=== PATIENT | male | born 1935 | race Caucasian/White ===

== ENCOUNTER → 2019-07-23 | Outpatient (CLI) | payer MEDICARE | END | disposition home or self-care (01) | LOC: RAH 09:19 | PROVIDERS: ATTEND Neurological Surgery | DX: I35.8 Other nonrheumatic aortic valve disorders (principal) | CPT/HCPCS: 93306; 93356 ==

== ENCOUNTER 2021-09-07 17:19 | Inpatient (IN) | payer MEDICARE ==
[~2021-09-07] VITALS: Ht 180.3 cm; Wt 68.9 kg
[2021-09-07 18:02] LABS: HEMATOCRIT 44.3 % (42-54); MEAN CORPUSCULAR HEMOGLOBIN 31.4 pg (27.0-33.0); MEAN CORPUSCULAR HGB CONC 33.4 g/dL (32.0-36.0); MEAN CORPUSCULAR VOLUME 93.9 fL (79-99); RED BLOOD CELL COUNT(AUTO) 4.72 MIL/uL (4.50-6.20); RED CELL DISTRIBUTION WIDTH 13.2 % (11.0-15.5); WHITE BLOOD COUNT (AUTO) 14.5 K/uL (4.8-10.8)
[2021-09-07 18:15] LABS: CREATININE 0.8 mg/dL (0.5-1.5); POTASSIUM 3.9 mmol/L (3.5-5.1)
[2021-09-07 18:19] LABS: ALBUMIN 3.3 g/dL (3.5-5.0); MAGNESIUM 2.3 mg/dL (1.80-2.40); TOTAL PROTEIN, SERUM 7.4 g/dL (6.0-8.3)
[2021-09-07 18:21] LABS: BILIRUBIN,URINE Negative (NEGATIVE); COLOR,URINE Dark Yellow (YELLOW); GLUCOSE, URINE (UA) Negative (NEGATIVE); KETONES,URINE Negative (NEGATIVE); LEUKOCYTE ESTERASE ,URINE Large (NEGATIVE); NITRATE,URINE Positive (NEGATIVE); OCCULT BLOOD,URINE Small (NEGATIVE); PROTEIN,URINE POS 1+ mg/dL (NEGATIVE)
[2021-09-07 18:22] LABS: APPEARANCE,URINE CLOUDY (CLEAR)
[2021-09-07 18:37] LABS: BACTERIA,URINE Moderate /HPF (None Seen); SQUAMOUS EPITHELIAL CELL,UR Rare /HPF (0-2); WBC,URINE 51-100 /HPF (0-1)
[2021-09-07] MEDS ORDERED: CEFTRIAXONE 1G VIAL IVP ONE (19:00)
[2021-09-07] MEDS ORDERED: 0.9% NACL 500ML IV.SOLN 500 ML IV ONE (19:00)
[2021-09-07] MEDS ORDERED: IPRATROPIUM/ALBUTEROL SULFATE 3 ML SOLUTION IH ONE (19:00)
[2021-09-07 19:25] LABS: ABG BASE EXCESS 1.3 mmol/L (-2.0-3.0); ABG HCO3 24.4 mmol/L (21.0-28.0); ABG OXYGEN SATURATION 98.4 % (95.0-99.0); ABG PCO2 34 mmHg (35-48)
[2021-09-07] MEDS ORDERED: GUAIFENESIN-DM 200/20 MG 10 ML PO PRN (20:00)
[2021-09-07] MEDS ORDERED: ONDANSETRON 4MG INJ IV PRN (20:00)
[2021-09-07] MEDS ORDERED: ACETAMINOPHEN 325 MG TAB PO PRN ×2 (20:00)
[2021-09-07] MEDS ORDERED: 0.9%NACL 100ML 100 ML ONE (20:40)
[2021-09-07] MEDS: CEFEPIME HCL 2 GM VIAL IVP SCH (20:43)
[2021-09-07] MEDS: SOLU-MEDROL 125MG VIAL IV SCH (20:43)
[2021-09-07] MEDS ORDERED: 0.9%NACL 1000ML 2,259 ML IV ONE (21:00)
[2021-09-07] MEDS ORDERED: IOHEXOL 350 MG/ML 100ML INFUS..BTL IV ONE (21:14)
[2021-09-07] MEDS: DOXYCYCLINE 100MG+NS 250ML 250 ML IV SCH (21:59)
[2021-09-07] MEDS: IPRATROPIUM/ALBUTEROL SULFATE 3 ML SOLUTION IH SCH (23:12)
[2021-09-08 06:41] LABS: BASOPHILS % (AUTO) 0.1 % (0.0-5.0); HEMATOCRIT 40.7 % (42-54); LYMPHOCYTES % (AUTO) 3.7 % (21.0-51.0); MEAN CORPUSCULAR HEMOGLOBIN 29.7 pg (27.0-33.0); MEAN CORPUSCULAR HGB CONC 32.2 g/dL (32.0-36.0); MEAN CORPUSCULAR VOLUME 92.3 fL (79-99); MONOCYTES % (AUTO) 8.4 % (3.0-13.0); NEUTROPHILS % (AUTO) 87.4 % (40.0-77.0); PLATELET COUNT (AUTO) 155 K/uL (130-400); RED BLOOD CELL COUNT(AUTO) 4.41 MIL/uL (4.50-6.20); RED CELL DISTRIBUTION WIDTH 13.2 % (11.0-15.5); WHITE BLOOD COUNT (AUTO) 10.9 K/uL (4.8-10.8)
[2021-09-08] MEDS: IPRATROPIUM/ALBUTEROL SULFATE 3 ML SOLUTION IH SCH ×4 (06:45→23:47)
[2021-09-08] MEDS ORDERED: SODIUM CHLORIDE 3% FOR INHALATION 4 ML/AMP VIAL.NEB IH ONE (06:50)
[2021-09-08 06:54] LABS: CREATININE 0.7 mg/dL (0.5-1.5); MAGNESIUM 2.1 mg/dL (1.80-2.40); PHOSPHORUS 2.9 mg/dL (2.5-4.9); POTASSIUM 4.2 mmol/L (3.5-5.1)
[2021-09-08] MEDS: SOLU-MEDROL 125MG VIAL IV SCH ×2 (08:00→20:05)
[2021-09-08] MEDS: CEFEPIME HCL 2 GM VIAL IVP SCH ×2 (08:00→20:05)
[2021-09-08] MEDS: DOXYCYCLINE 100MG+NS 250ML 250 ML IV SCH ×2 (08:03→20:05)
[2021-09-08] MEDS ORDERED: FAMOTIDINE 20MG TAB PO SCH (09:00)
[2021-09-08] MEDS ORDERED: ENOXAPARIN SODIUM 40 MG/0.4 ML SYRINGE SQ SCH (09:00)
[2021-09-08] MEDS ORDERED: BUDESONIDE 0.5 MG/2 ML INH IH SCH (10:30)
[2021-09-08 12:00] VITALS: BP 131/84
[2021-09-08 16:00] VITALS: BP 142/82
[2021-09-08] MEDS: BUDESONIDE 0.5 MG/2 ML INH IH SCH (17:16)
[2021-09-08 19:50] VITALS: BP 138/78
[2021-09-08 23:35] VITALS: BP 126/69
[2021-09-09 03:27] VITALS: BP_SYST 109; BP_DIAS 27; BP_DIAS 67
[2021-09-09 06:26] LABS: BASOPHILS % (AUTO) 0.5 % (0.0-5.0); EOSINOPHILS % (AUTO) 2.5 % (0.0-8.0); HEMATOCRIT 38.5 % (42-54); MEAN CORPUSCULAR HEMOGLOBIN 30.6 pg (27.0-33.0); MEAN CORPUSCULAR HGB CONC 32.5 g/dL (32.0-36.0); MEAN CORPUSCULAR VOLUME 94.1 fL (79-99); MONOCYTES % (AUTO) 16.4 % (3.0-13.0); NEUTROPHILS % (AUTO) 70.1 % (40.0-77.0); PLATELET COUNT (AUTO) 149 K/uL (130-400); RED BLOOD CELL COUNT(AUTO) 4.09 MIL/uL (4.50-6.20); RED CELL DISTRIBUTION WIDTH 13.4 % (11.0-15.5); WHITE BLOOD COUNT (AUTO) 7.5 K/uL (4.8-10.8)
[2021-09-09] MEDS: IPRATROPIUM/ALBUTEROL SULFATE 3 ML SOLUTION IH SCH ×3 (06:39→17:30)
[2021-09-09] MEDS: BUDESONIDE 0.5 MG/2 ML INH IH SCH ×2 (06:39→17:31)
[2021-09-09 06:40] LABS: ALBUMIN 2.7 g/dL (3.5-5.0); BILIRUBIN,TOTAL 0.3 mg/dL (0.2-1.0); CREATININE 0.6 mg/dL (0.5-1.5); POTASSIUM 3.5 mmol/L (3.5-5.1); TOTAL PROTEIN, SERUM 6.6 g/dL (6.0-8.3)
[2021-09-09 08:00] VITALS: BP 129/83
[2021-09-09] MEDS: CEFEPIME HCL 2 GM VIAL IVP SCH ×2 (08:10→20:24)
[2021-09-09] MEDS: DOXYCYCLINE 100MG+NS 250ML 250 ML IV SCH ×2 (08:10→20:24)
[2021-09-09] MEDS: SOLU-MEDROL 125MG VIAL IV SCH (08:13)
[2021-09-09 12:00] VITALS: BP 150/78
[2021-09-09 16:00] VITALS: BP 143/76
[2021-09-09 19:50] VITALS: BP 135/60
[2021-09-09] MEDS ORDERED: METOPROLOL TARTRATE 25 MG TAB PO SCH (21:00)
[2021-09-09 23:36] VITALS: BP 131/69
[2021-09-10] MEDS: IPRATROPIUM/ALBUTEROL SULFATE 3 ML SOLUTION IH SCH ×3 (00:20→11:05)
[2021-09-10 03:46] LABS: BASOPHILS % (AUTO) 0.6 % (0.0-5.0); EOSINOPHILS % (AUTO) 2.6 % (0.0-8.0); HEMATOCRIT 37.2 % (42-54); LYMPHOCYTES % (AUTO) 11.9 % (21.0-51.0); MEAN CORPUSCULAR HEMOGLOBIN 29.8 pg (27.0-33.0); MEAN CORPUSCULAR HGB CONC 32.3 g/dL (32.0-36.0); MEAN CORPUSCULAR VOLUME 92.3 fL (79-99); MONOCYTES % (AUTO) 16.4 % (3.0-13.0); NEUTROPHILS % (AUTO) 67.3 % (40.0-77.0); PLATELET COUNT (AUTO) 172 K/uL (130-400); RED BLOOD CELL COUNT(AUTO) 4.03 MIL/uL (4.50-6.20); RED CELL DISTRIBUTION WIDTH 13.2 % (11.0-15.5); WHITE BLOOD COUNT (AUTO) 6.5 K/uL (4.8-10.8)
[2021-09-10 03:49] VITALS: BP 109/63
[2021-09-10 04:14] LABS: CREATININE 0.6 mg/dL (0.5-1.5); POTASSIUM 3.5 mmol/L (3.5-5.1)
[2021-09-10] MEDS: BUDESONIDE 0.5 MG/2 ML INH IH SCH (06:42)
[2021-09-10 07:30] VITALS: BP 130/81
[2021-09-10] MEDS ORDERED: ENOXAPARIN SODIUM 30 MG/0.3 ML SQ SCH (09:00)
[2021-09-10] MEDS ORDERED: PANTOPRAZOLE 40 MG/VIAL IVP SCH (09:00)
[2021-09-10 11:00] VITALS: BP 142/77
[2021-09-10] MEDS ORDERED: METOPROLOL TARTRATE 25 MG TAB PO SCH (11:00)
[2021-09-10] MEDS: CEFEPIME HCL 2 GM VIAL IVP SCH (11:19)
[2021-09-10] MEDS: DOXYCYCLINE 100MG+NS 250ML 250 ML IV SCH (11:20)
== END 2021-09-10 18:00 | disposition home or self-care (01) | DRG 871 ==
LOC: EDH 17:19 → EDHIP 20:00 → 4CH 09-08 08:40
PROVIDERS: ADMIT Internal Medicine; ATTEND Internal Medicine
DX: A41.9 Sepsis, unspecified organism (principal); J18.9 Pneumonia, unspecified organism; J96.01 Acute respiratory failure with hypoxia; N39.0 Urinary tract infection, site not specified; D68.59 Other primary thrombophilia; R65.20 Severe sepsis without septic shock; N40.0 Benign prostatic hyperplasia without lower urinary tract symptoms; Z20.822 Contact with and (suspected) exposure to COVID-19; G51.0 Bell's palsy; Z96.642 Presence of left artificial hip joint; Z82.49 Family history of ischemic heart disease and other diseases of the circulatory system; B96.20 Unspecified Escherichia coli [E. coli] as the cause of diseases classified elsewhere; Z87.891 Personal history of nicotine dependence
CPT/HCPCS: 36415; 36600; 71045; 71275; 80048; 80053; 81001; 82435; 82803; 82947; 82948; 83605; 83735; 83880; 84100; 84132; 84145; 84295; 84484; 85018; 85025; 85027; 85378; 86738; 87040; 87071; 87077; 87088; 87186; 87205; 87449; 87635; 87804; 93005; 93306; 93970; 94640; 94664; 94760; 99291; C9113; C9803; G0378; J0692; J0696; J1650; J2930; J3490; J7030; J7040; Q9967

== ENCOUNTER 2022-12-22 14:24 | Emergency (ER) | payer MEDICARE ==
[~2022-12-22] VITALS: Ht 182.9 cm; Wt 68.0 kg
[2022-12-22 14:49] LABS: BILIRUBIN,URINE NEGATIVE (NEGATIVE); COLOR,URINE LIGHT-YELLOW (YELLOW); GLUCOSE, URINE (UA) NEGATIVE (NEGATIVE); KETONES,URINE NEGATIVE (NEGATIVE); LEUKOCYTE ESTERASE ,URINE 500 Leu/uL (NEGATIVE); NITRATE,URINE 2+ (NEGATIVE); OCCULT BLOOD,URINE SMALL (NEGATIVE); PH,URINE 5.5 (5.0-8.0); PROTEIN,URINE 20 mg/dL (NEGATIVE); UROBILINOGEN,URINE 0.2 mg/dL (0.2-1.0)
[2022-12-22 14:51] LABS: APPEARANCE,URINE HAZY (CLEAR)
[2022-12-22 14:52] LABS: BACTERIA,URINE FEW /HPF (None Seen); SQUAMOUS EPITHELIAL CELL,UR RARE /HPF (0-2); WBC,URINE TNTC /HPF (0-1)
[2022-12-22 14:59] LABS: HEMATOCRIT 43.6 % (42-54); MEAN CORPUSCULAR HEMOGLOBIN 30.6 pg (27.0-33.0); MEAN CORPUSCULAR VOLUME 92.8 fL (79-99); RED BLOOD CELL COUNT(AUTO) 4.7 MIL/uL (4.50-6.20); WHITE BLOOD COUNT (AUTO) 7.8 K/uL (4.8-10.8)
[2022-12-22 15:07] LABS: CREATININE 0.7 mg/dL (0.5-1.5); POTASSIUM 3.9 mmol/L (3.5-5.1)
[2022-12-22 15:12] LABS: ALBUMIN 3.4 g/dL (3.5-5.0); TOTAL PROTEIN, SERUM 7.4 g/dL (6.0-8.3)
[2022-12-22 15:39] VITALS: BP 126/85; PULSE 102; RESP 18; O2SAT 95
[2022-12-22] MEDS ORDERED: CEFTRIAXONE 2GM VIAL ONE (15:41)
[2022-12-22] MEDS ORDERED: CEFTRIAXONE 2GM VIAL IVPB ONE (16:00)
[2022-12-22] MEDS ORDERED: DOXY-469 PO (16:12)
== END 2022-12-22 17:16 | disposition home or self-care (01) ==
LOC: EDH 14:24
DX: N39.0 Urinary tract infection, site not specified (principal)
CPT/HCPCS: 36415; 80053; 81001; 85027; 87077; 87088; 87186; 96365; J0696

== ENCOUNTER 2023-01-07 13:10 | Emergency (ER) | payer MEDICARE ==
[~2023-01-07] VITALS: Ht 182.9 cm; Wt 68.0 kg
[~2023-01-07 13:10] MED LIST: DOXY-469 PO
[2023-01-07 14:41] LABS: BILIRUBIN,URINE NEGATIVE (NEGATIVE); COLOR,URINE YELLOW (YELLOW); GLUCOSE, URINE (UA) NEGATIVE (NEGATIVE); KETONES,URINE NEGATIVE (NEGATIVE); LEUKOCYTE ESTERASE ,URINE 500 Leu/uL (NEGATIVE); NITRATE,URINE 2+ (NEGATIVE); OCCULT BLOOD,URINE MODERATE (NEGATIVE); PROTEIN,URINE 30 mg/dL (NEGATIVE); UROBILINOGEN,URINE 0.2 mg/dL (0.2-1.0)
[2023-01-07 14:44] LABS: ADD UA MICROSCOPIC YES; APPEARANCE,URINE HAZY (CLEAR)
[2023-01-07 14:53] LABS: BACTERIA,URINE MOD /HPF (None Seen); MUCUS,URINE RARE LPF (None Seen); RBC,URINE 51-100 /HPF (0-1); SQUAMOUS EPITHELIAL CELL,UR RARE /HPF (0-2); WBC,URINE TNTC /HPF (0-1)
[2023-01-07] MEDS ORDERED: CEPH500T PO (15:25)
[2023-01-07 16:37] VITALS: BP 139/68; PULSE 78; RESP 18; O2SAT 96
== END 2023-01-07 16:45 | disposition home or self-care (01) ==
LOC: EDH 13:10
DX: N39.0 Urinary tract infection, site not specified (principal); R33.9 Retention of urine, unspecified
CPT/HCPCS: 51702; 81001; 87077; 87088; 87186

== ENCOUNTER → 2023-09-20 | Outpatient (CLI) | payer MEDICARE ==
[~2023-09-20] MED LIST changes: -DOXY-469 PO; +TAMS-1 PO
== END | disposition home or self-care (01) ==
LOC: RAH 10:50
PROVIDERS: ATTEND Urology
DX: R97.20 Elevated prostate specific antigen [PSA] (principal); K86.89 Other specified diseases of pancreas; M19.012 Primary osteoarthritis, left shoulder; M19.011 Primary osteoarthritis, right shoulder; M17.0 Bilateral primary osteoarthritis of knee; M19.072 Primary osteoarthritis, left ankle and foot; M19.071 Primary osteoarthritis, right ankle and foot; M19.022 Primary osteoarthritis, left elbow; M19.021 Primary osteoarthritis, right elbow; M19.032 Primary osteoarthritis, left wrist; M19.031 Primary osteoarthritis, right wrist
CPT/HCPCS: 78306; A9503